=== PATIENT | male | born 1970 | race Caucasian/White ===

== ENCOUNTER 2020-10-21 02:43 | Emergency (ER) | payer OTHER, SELFPAY ==
[2020-10-21] MEDS ORDERED: ONDANSETRON 4 MG/2 ML VIAL ONE (03:10)
[2020-10-21] MEDS ORDERED: NA CHLORIDE 0.9% 1,000 ML ONE (03:10)
[2020-10-21 03:14] LABS: Absolute Lymphocytes (CBC) 0.8 K/uL (0.7-4.9); Basophils % 0.4 % (0-1.3); Hematocrit 44.4 % (39.6-49.0); Lymphocytes % 7.3 % (15.3-44.8); MPV 7.3 fL (7.6-11.3); RBC Red Blood Cell Count 4.63 M/uL (4.33-5.43)
[2020-10-21] MEDS ORDERED: PANTOPRAZOLE 40 MG INJ ONE (03:24)
[2020-10-21 03:34] LABS: Albumin 4.8 g/dL (3.4-5.0); Bilirubin Direct 0.4 mg/dL (0-0.2); Bilirubin Total 2.6 mg/dL (0.2-1.0); Potassium 3.9 mmol/L (3.5-5.1); Protein, Total 9.1 g/dL (6.4-8.2)
--- NOTE | 2020-10-21 04:07 | EDPHYS ---
Physician Documentation [facility] Name: Basim Mathis Age: 49 yrs Sex: Male : 1970 Arrival Date: 10/21/2020 Time: 02:46 Bed 14 Private MD: ED Physician Anoop Sun HPI: 10/21 03:59 This 49 yrs old Male presents to ER via Ambulatory with complaints of tw4 Nausea/Vomiting. 03:59 The patient presents to the emergency department with nausea, vomiting, that is tw4 continuous. Onset: The symptoms/episode began/occurred today. Possible causes: ALCOHOL WITHDRAWAL. The symptoms are aggravated by nothing. The symptoms are alleviated by nothing. Associated signs and symptoms: Pertinent positives: abdominal pain. Severity of symptoms: At their worst the symptoms were moderate in the emergency department the symptoms are unchanged. The patient has not experienced similar symptoms in the past. Historical: - Allergies: 03:22 No Known Allergies; ea - Home Meds: 03:22 None [Active]; ea - PMHx: 03:22 None; ea - PSHx: 03:22 None; ea - Immunization history:: Adult Immunizations up to date. - Social history:: Smoking status: Patient/guardian denies using tobacco, Patient uses alcohol, on a daily basis. ROS: 03:59 Constitutional: Negative for fever, chills, and weight loss, Eyes: Negative for injury, tw4 pain, redness, and discharge, Cardiovascular: Negative for chest pain, palpitations, and edema, Respiratory: Negative for shortness of breath, cough, wheezing, and pleuritic chest pain, Abdomen/GI: Negative for abdominal pain, nausea, vomiting, diarrhea, and constipation, MS/Extremity: Negative for injury and deformity, Skin: Negative for injury, rash, and discoloration. Exam: 04:08 Constitutional: This is a well developed, well nourished patient who is awake, alert, tw4 and in no acute distress. Head/Face: Normocephalic, atraumatic. Chest/axilla: Normal chest wall appearance and motion. Nontender with no deformity. No lesions are appreciated. Cardiovascular: Regular rate and rhythm with a normal S1 and S2. No gallops, murmurs, or rubs. Normal PMI, no JVD. No pulse deficits. Respiratory: Lungs have equal breath sounds bilaterally, clear to auscultation and percussion. No rales, rhonchi or wheezes noted. No increased work of breathing, no retractions or nasal flaring. 04:08 Back: No spinal tenderness. No costovertebral tenderness. Full range of motion. Skin: Warm, dry with normal turgor. Normal color with no rashes, no lesions, and no evidence of cellulitis. MS/ Extremity: Pulses equal, no cyanosis. Neurovascular intact. Full, normal range of motion. Neuro: Awake and alert, GCS 15, oriented to person, place, time, and situation. Cranial nerves II-XII grossly intact. Motor strength 5/5 in all extremities. Sensory grossly intact. Cerebellar exam normal. Normal gait. 04:08 Abdomen/GI: Inspection: abdomen appears normal, Bowel sounds: normal, Palpation: moderate abdominal tenderness, in the epigastric area. Vital Signs: 02:58 BP 151 / 87; Pulse 92; Resp 18; Temp 97.4; Pulse Ox 97% ; Weight 61.23 kg; Height 5 ft. ea 8 in. (172.72 cm); 04:30 BP 136 / 76; Pulse 98; Resp 16; Pulse Ox 99% ; ea 05:06 BP 142 / 84; Pulse 92; Resp 18; Temp 97.6; Pulse Ox 98% on R/A; ea 02:58 Body Mass Index 20.53 (61.23 kg, 172.72 cm) ea MDM: 03:09 Patient medically screened. tw4 04:08 Differential diagnosis: Nonspecific abd pain, gastritis, cholecystitis, pancreatitis, tw4 viral gastroenteritis. Data reviewed: vital signs, nurses notes. Data reviewed: lab test result(s), CBC, electrolytes. Data interpreted: Pulse oximetry: Interpretation: normal. Counseling: I had a detailed discussion with the patient and/or guardian regarding: the historical points, exam findings, and any diagnostic results supporting the discharge/admit diagnosis, lab results. Medication response: Zofran relieved the patient's nausea. Special discussion: I discussed with the patient/guardian in detail that at this point there is no indication for admission to the hospital. It is understood, however, that if the symptoms persist or worsen the patient needs to return immediately for re-evaluation. 10/21 02:51 Order name: Basic Metabolic Panel; Complete Time: 03:57 tw4 12/12 03:58 Interpretation: Normal except: GFR 55; CRE 1.37; GLUC 163; CO2 15. tw4 10/21 02:51 Order name: CBC with Diff; Complete Time: 03:57 tw4 10/21 03:58 Interpretation: Normal except: LYM% 7.3; MAU% 83.1; MPV 7.3; NEUT A 8.6. tw4 10/21 02:51 Order name: Hepatic Function; Complete Time: 03:57 4 10/21 03:58 Interpretation: Normal except: GLOB 4.3; TP 9.1; BILID 0.4; BILIT 2.6; ALK 122; AST 91. tw10/21 02:51 Order name: Lipase; Complete Time: 03:57 4 10/21 02:51 Order name: IV Saline Lock; Complete Time: 03:10 tw4 10/21 02:51 Order name: Labs collected and sent; Complete Time: 03:11 tw4 Administered Medications: 03:09 Drug: NS 0.9% 1000 ml Route: IV; Rate: 1 bolus; Site: right antecubital; ea 04:31 Follow up: Response: No adverse reaction; IV Status: Completed infusion; IV Intake: ea 1000ml 03:09 Drug: Zofran (Ondansetron) 4 mg Route: IVP; Site: right antecubital; ea 04:31 Follow up: Response: No adverse reaction; Nausea is decreased ea 03:16 Drug: ProTONIX 40 mg Route: IVP; Site: right antecubital; ea 04:31 Follow up: Response: No adverse reaction ea Disposition: 10/21/20 04:06 Discharged to Home. Impression: Nausea and vomiting, Alcohol dependence with withdrawal, uncomplicated. - Condition is Stable. - Discharge Instructions: Chemical Dependency, Finding Treatment for Addiction, Alcohol Withdrawal, Alcohol Use Disorder, Alcohol Withdrawal, [id number], What You Need to Know About Alcohol Abuse and Dependence, Youth. - Prescriptions for Zofran 4 mg Oral Tablet - take 1 tablet by ORAL route every 12 hours As needed; 20 tablet. Pepcid 20 mg Oral Tablet - take 1 tablet by ORAL route every 12 hours for 10 days; 20 tablet. - Medication Reconciliation Form, Thank You Letter, Antibiotic Education, Prescription Opioid Use form. - Follow up: Private Physician; When: Upon discharge from the Emergency Department; Reason: Recheck today's complaints, Continuance of care, Re-evaluation by your physician. - Problem is new. - Symptoms have improved. Signatures: Dispatcher [employer] Amanda Hoover, Anoop Graves RN, ea, MD MD tw4 Corrections: (The following items were deleted from the chart) 06:04 04:06 10/21/2020 04:06 Discharged to Home. Impression: Nausea and vomiting; Alcohol ea dependence with withdrawal, uncomplicated. Condition is Stable. Forms are Medication Reconciliation Form, Thank You Letter, Antibiotic Education, Prescription Opioid Use. Follow up: Private Physician; When: Upon discharge from the Emergency Department; Reason: Recheck today's complaints, Continuance of care, Re-evaluation by your physician. Problem is new. Symptoms have improved. tw4
--- NOTE | 2020-10-21 04:07 | ER ---
Nurse's Notes [facility] Name: Basim Mathis Age: 49 yrs Sex: Male : 1970 Arrival Date: 10/21/2020 Time: 02:46 Bed 14 Private MD: Diagnosis: Nausea and vomiting;Alcohol dependence with withdrawal, uncomplicated Presentation: 10/21 02:58 Chief complaint: Patient states: Reports nausea and vomiting since yesterday morning, ea pt reports symptoms started at 7 am Friday. Denies diarrhea. States ,"I normally drink 1 pint of of liquor a day but haven't been able to because I have been vomiting.". Coronavirus screen: At this time, the client does not indicate any symptoms associated with coronavirus-19. Ebola Screen: No symptoms or risks identified at this time. Initial Sepsis Screen: Does the patient meet any 2 criteria? No. Patient's initial sepsis screen is negative. Does the patient have a suspected source of infection? No. Patient's initial sepsis screen is negative. Risk Assessment: Do you want to hurt yourself or someone else? Patient reports no desire to harm self or others. Onset of symptoms was October 20, 2020. 02:58 Method Of Arrival: Ambulatory ea 02:58 Acuity: HUYEN 3 ea Historical: - Allergies: 03:22 No Known Allergies; ea - Home Meds: 03:22 None [Active]; ea - PMHx: 03:22 None; ea - PSHx: 03:22 None; ea - Immunization history:: Adult Immunizations up to date. - Social history:: Smoking status: Patient/guardian denies using tobacco, Patient uses alcohol, on a daily basis. Screenin:20 Abuse screen: Denies threats or abuse. Nutritional screening: No deficits noted. ea Tuberculosis screening: No symptoms or risk factors identified. Fall Risk IV access (20 points). Assessment: 03:22 General: Appears in no apparent distress. Behavior is appropriate for age. Pain: Denies ea pain. Neuro: Level of Consciousness is awake, alert, obeys commands, Oriented to person, place, time, situation. Cardiovascular: Patient's skin is warm and dry. Respiratory: Airway is patent Respiratory effort is even, unlabored, Respiratory pattern is regular, symmetrical. GI: Abdomen is non-distended, Reports nausea, vomiting. Derm: Skin is dry, Skin is pale, Skin temperature is warm. 04:43 Reassessment: Patient and/or family updated on plan of care and expected duration. Pain ea level reassessed. Patient is alert, oriented x 3, equal unlabored respirations, skin warm/dry/pink. Discharge instruction given to patient, verbalized the understanding of instruction. Pt reports he has not eaten all day, pt given fruit cup and juice. Tolerating well. 06:03 Reassessment: Patient and/or family updated on plan of care and expected duration. Pain ea level reassessed. Patient is alert, oriented x 3, equal unlabored respirations, skin warm/dry/pink. Pt reports his nausea is gone, was able to tolerate PO fluids and a fruit cup. Pt left ED ambulatory tolerating well. Vital Signs: 02:58 BP 151 / 87; Pulse 92; Resp 18; Temp 97.4; Pulse Ox 97% ; Weight 61.23 kg; Height 5 ft. ea 8 in. (172.72 cm); 04:30 BP 136 / 76; Pulse 98; Resp 16; Pulse Ox 99% ; ea 05:06 BP 142 / 84; Pulse 92; Resp 18; Temp 97.6; Pulse Ox 98% on R/A; ea 02:58 Body Mass Index 20.53 (61.23 kg, 172.72 cm) ea ED Course: 02:46 Patient arrived in ED. am2 02:51 Anoop Sun MD is Attending Physician. tw4 02:52 Amanda Webster, LEEANNA is Primary Nurse. ea 03:00 Inserted saline lock: 20 gauge in right antecubital area, using aseptic technique. ea Blood collected. 03:20 Triage completed. ea 03:21 Patient has correct armband on for positive identification. Bed in low position. Call ea light in reach. Side rails up X 1. 03:21 Arm band placed on right wrist. Patient placed in an exam room, on a stretcher, on ea bus monitor, on pulse oximetry. 04:31 No provider procedures requiring assistance completed. ea 04:43 IV discontinued, intact, bleeding controlled, No redness/swelling at site. Pressure ea dressing applied. Administered Medications: 03:09 Drug: NS 0.9% 1000 ml Route: IV; Rate: 1 bolus; Site: right antecubital; ea 04:31 Follow up: Response: No adverse reaction; IV Status: Completed infusion; IV Intake: ea 1000ml 03:09 Drug: Zofran (Ondansetron) 4 mg Route: IVP; Site: right antecubital; ea 04:31 Follow up: Response: No adverse reaction; Nausea is decreased ea 03:16 Drug: ProTONIX 40 mg Route: IVP; Site: right antecubital; ea 04:31 Follow up: Response: No adverse reaction ea Intake: 04:31 IV: 1000ml; Total: 1000ml. ea Outcome: 04:06 Discharge ordered by tw4 04:43 Discharge instructions given to patient, Instructed on discharge instructions, follow ea up and referral plans. medication usage, Demonstrated understanding of instructions, follow-up care, medications, Prescriptions given X 2. 06:03 Discharged to home ambulatory. ea 06:03 Condition: stable 06:04 Patient left the ED. ea Signatures: Dinorah Maria Elena, RN RN Anoop Kern MD MD tw4
[2020-10-25 13:07] VITALS: BP 151/87; TEMP 97.4; O2SAT 97
== END 2020-10-21 06:04 | disposition home or self-care (01) ==
LOC: ER 02:43
DX: F10.239 Alcohol dependence with withdrawal, unspecified (principal)
CPT/HCPCS: 36415; 80048; 80076; 83690; 85025; 96361; 96374; 96375; 99284; C9113; J2405; J7030

== ENCOUNTER 2021-02-09 18:07 | Emergency (ER) | payer SELFPAY ==
[2021-02-09] MEDS ORDERED: LORazepam 2 MG/ML VIAL ONE (19:44)
[2021-02-09] MEDS ORDERED: ONDANSETRON 4 MG/2 ML VIAL ONE (19:44)
[2021-02-09] MEDS ORDERED: NA CHLORIDE 0.9% 1,000 ML ONE ×2 (19:44→20:32)
[2021-02-09] MEDS ORDERED: PANTOPRAZOLE 40 MG INJ ONE (19:44)
[2021-02-09 19:48] LABS: Absolute Lymphocytes (CBC) 0.7 K/uL (0.7-4.9); Basophils % 0.5 % (0-1.3); Lymphocytes % 4.1 % (15.3-44.8); MPV 7.9 fL (7.6-11.3); Protime INR 0.89
[2021-02-09 20:00] LABS: ALT/SGPT 103 U/L (12-78); AST/SGOT 85 U/L (15-37); Alkaline Phosphatase 108 U/L (45-117); BUN Blood Urea Nitrogen 14 mg/dL (7-18); Bicarbonate 15 mmol/L (21-32); Bilirubin Direct 0.3 mg/dL (0-0.2); Bilirubin Total 1.8 mg/dL (0.2-1.0); Glucose Level 131 mg/dL (74-106); Lipase 72 U/L (73-393); Potassium 4.6 mmol/L (3.5-5.1); Protein, Total 9.3 g/dL (6.4-8.2); Sodium Level 140 mmol/L (136-145); Troponin I < 0.02 ng/mL (0.0-0.045)
[2021-02-09 20:29] LABS: Blood Morphology Comment NOT SEEN (NOT SEEN); Platelet Estimate ADEQ
[2021-02-09] MEDS ORDERED: MULTIVITAMINS 10 ML VIAL (INJ) IV ONE (20:31)
[2021-02-09] MEDS ORDERED: THIAMINE 200 MG/2 ML INJ ONE (20:31)
[2021-02-09] MEDS ORDERED: FOLIC ACID 5 MG/ML VIAL ONE (20:32)
--- NOTE | 2021-02-09 21:06 | RAD REPORT ---
EXAM DESCRIPTION: CT - Abdomen Pelvis W Contrast - 02/09/2021 8:54 pm CLINICAL HISTORY: Abdominal pain COMPARISON: none. TECHNIQUE: Computed axial tomography of the abdomen pelvis was obtained. 100 cc Isovue-300 was admin istered intravenously. Oral contrast was not requested which limits evaluation of bowel. All CT scans are performed using dose optimization technique as appropriate and may include automated exposure control or mA/KV adjustment according to patient size. FINDINGS: Fatty liver. Hepatomegaly. Spleen, pancreas, adrenal and kidneys appear unremarkable. There is no evidence of diverticulitis. Normal appendix IMPRESSION: Fatty liver. Mild hepatomegaly.
--- NOTE | 2021-02-09 21:07 | RAD REPORT ---
EXAM DESCRIPTION: US - Abdomen Exam Limited - 02/09/2021 9:00 pm CLINICAL HISTORY: Abdominal pain. COMPARISON: None. FINDINGS: The gallbladder wall is not thickened. A gallstone is not seen. The biliary tree is normal caliber. IMPRESSION: Unremarkable gallbladder ultrasound.
--- NOTE | 2021-02-09 21:20 | EDPHYS ---
Physician Documentation [facility] Name: Basim Mathis Age: 50 yrs Sex: Male : 1970 Arrival Date: 02/09/2021 Time: 18:08 Bed 24 Private MD: ED Physician Wilbert Logan HPI: 02/09 19:00 This 50 yrs old Male presents to ER via Ambulatory with complaints of cp Vomiting. 19:00 The patient presents to the emergency department with nausea, with "dry heaves", cp vomiting, that is continuous, described as bilious, abdominal pain, of the right upper quadrant and left upper quadrant. Onset: The symptoms/episode began/occurred this morning. Possible causes: history of daily alcohol use. Associated signs and symptoms: Pertinent negatives: constipation, diarrhea, fever, GI bleeding. Severity of symptoms: in the emergency department the symptoms are unchanged despite home interventions. Historical: - Allergies: 18:36 No Known Allergies; ca1 - Home Meds: 18:36 None [Active]; ca1 - PMHx: 18:36 None; ca1 - PSHx: 18:36 None; ca1 - Immunization history:: Flu vaccine is not up to date. - Social history:: Smoking status: Patient denies any tobacco usage or history of. ROS: 19:05 Constitutional: Positive for poor PO intake, Negative for body aches, chills, fever. cp 19:05 Eyes: Negative for injury, pain, redness, and discharge. cp 19:05 Cardiovascular: Negative for chest pain. 19:05 Respiratory: Negative for cough, shortness of breath, wheezing. 19:05 Abdomen/GI: Positive for abdominal pain, nausea and vomiting, Negative for diarrhea, constipation, hematemesis, black/tarry stool, rectal bleeding. 19:05 Back: Negative for pain at rest, pain with movement. 19:05 Skin: Negative for rash. 19:05 Neuro: Negative for altered mental status, headache, syncope, weakness. 19:05 All other systems are negative. Exam: 19:12 Constitutional: The patient appears alert, awake, non-diaphoretic, non-toxic, well cp developed, well nourished. 19:12 Head/Face: Normocephalic, atraumatic. cp 19:12 Eyes: Periorbital structures: appear normal, Pupils: equal, round, and reactive to light and accomodation, Extraocular movements: intact throughout, Conjunctiva: normal, no exudate, no injection, Sclera: no appreciated abnormality, Lids and lashes: appear normal, bilaterally. 19:12 ENT: External ear(s): are unremarkable, Nose: is normal, Mouth: Lips: moist, Oral mucosa: moist, Posterior pharynx: Airway: no evidence of obstruction, patent. 19:12 Chest/axilla: Inspection: normal, Palpation: is normal, no crepitus, no tenderness. 19:12 Cardiovascular: Rate: tachycardic, Rhythm: regular, Edema: is not appreciated, JVD: is not appreciated. 19:12 Respiratory: the patient does not display signs of respiratory distress, Respirations: normal, no use of accessory muscles, no retractions, labored breathing, is not present, Breath sounds: are clear throughout, no decreased breath sounds, no stridor, no wheezing. 19:12 Abdomen/GI: Inspection: abdomen appears normal, Bowel sounds: active, all quadrants, Palpation: soft, in all quadrants, moderate abdominal tenderness, in the right upper quadrant and left upper quadrant, rebound tenderness, is not appreciated, involuntary guarding, is not appreciated. 19:12 Back: pain, is absent, ROM is normal. 19:12 Skin: no rash present. 19:12 Neuro: Orientation: to person, place \\T\\ time. Mentation: is normal, Motor: moves all fours, strength is normal. 21:15 ECG was reviewed by the Attending Physician. cp Vital Signs: 18:34 BP 155 / 93; Pulse 125; Resp 18 S; Temp 97.5(TE); Pulse Ox 100% on R/A; Weight 62.14 kg ca1 (R); Height 5 ft. 8 in. (172.72 cm) (R); 19:32 BP 153 / 88; Pulse 83; Resp 16; Pulse Ox 98% ; sf 20:00 BP 132 / 66; Pulse 87; Resp 16; Pulse Ox 98% ; sf 20:30 BP 136 / 83; Pulse 111; Resp 16; Pulse Ox 98% ; sf 21:00 BP 125 / 71; Pulse 100; Resp 16; Pulse Ox 100% ; sf 21:31 BP 142 / 84; Pulse 104; Resp 16; Pulse Ox 100% ; sf 22:09 BP 143 / 86; Pulse 109; Resp 16; Pulse Ox 99% ; sf 22:30 BP 133 / 78; Pulse 100; Resp 16; Pulse Ox 100% ; sf 23:00 BP 143 / 78; Pulse 100; Resp 16; Pulse Ox 100% ; sf 23:30 BP 142 / 78; Pulse 100; Resp 16; Pulse Ox 98% ; sf 18:34 Body Mass Index 20.83 (62.14 kg, 172.72 cm) ca1 MDM: 18:52 Patient medically screened. 21:15 Data reviewed: vital signs, nurses notes, lab test result(s), EKG, radiologic studies, cp CT scan, ultrasound. 21:15 Test interpretation: by ED physician or midlevel provider: ECG. 02/09 18:54 Order name: Basic Metabolic Panel; Complete Time: 20:20 02/09 20:21 Interpretation: Normal except: CO2 15; GLUC 131; GFR 71. 02/09 18:54 Order name: CBC with Diff; Complete Time: 21:00 cp 02/09 20:21 Interpretation: Normal except: WBC 17.00; MAU% 89.3; LYM% 4.1; NEUT A 15.2. 02/09 18:54 Order name: Hepatic Function; Complete Time: 20:20 cp 02/09 20:24 Interpretation: Normal except: AST 85; ALT 103; BILIT 1.8; BILID 0.3; TP 9.3; GLOB 4.3. cp 02/09 18:54 Order name: Lipase; Complete Time: 20:20 02/09 20:24 Interpretation: Abnormal: LIP 72. cp 02/09 18:54 Order name: PT-INR; Complete Time: 20:20 cp 02/09 18:54 Order name: UDS; Complete Time: 22:15 cp 02/09 18:54 Order name: ETOH Level; Complete Time: 20:20 cp 02/09 18:54 Order name: Troponin I; Complete Time: 20:20 cp 02/09 19:53 Order name: Manual Differential; Complete Time: 21:00 EDMS 02/09 21:00 Interpretation: Normal except: SEGS 82; BANDS [F] 8; LYM 1. cp 02/09 21:15 Order name: ABG; Complete Time: 23:05 cp 02/09 21:35 Order name: COVID-19 : Document "Date of Symptom Onset" if Symptomatic. 02/09 22:15 Order name: BMP; Complete Time: 23:05 la1 02/09 22:49 Order name: SARS-COV-2 RT PCR; Complete Time: 23:30 EDMS 02/09 18:54 Order name: IV Saline Lock; Complete Time: 19:22 cp 02/09 18:54 Order name: Labs collected and sent; Complete Time: 19:22 cp 02/09 18:54 Order name: EKG; Complete Time: 18:55 cp 02/09 18:54 Order name: EKG - Nurse/Tech; Complete Time: 21:09 cp 02/09 19:49 Order name: CT Abd/Pelvis - IV Contrast Only; Complete Time: 21:12 cp 02/09 21:13 Interpretation: Report reviewed. 02/09 20:30 Order name: US Abdomen Limited: RUQ/epigastric area; Complete Time: 21:12 cp EC:15 Rate is 101 beats/min. Rhythm is regular. ND interval is normal. QRS interval is cp normal. QT interval is normal. Interpreted by me. Reviewed by me. Administered Medications: 19:30 Drug: NS 0.9% 1000 ml Route: IV; Rate: 1 bolus; Site: right antecubital; rr5 21:35 Follow up: Response: No adverse reaction; IV Status: Completed infusion; IV Intake: sf 1000ml 19:32 Drug: Zofran (Ondansetron) 4 mg Route: IVP; Site: right antecubital; rr5 20:20 Follow up: Response: No adverse reaction; Nausea is decreased sf 19:34 Drug: ProTONIX 40 mg Route: IVP; Site: right antecubital; rr5 20:20 Follow up: Response: No adverse reaction; Nausea is decreased sf 19:36 Drug: Ativan 1 mg Route: IVP; Site: right antecubital; rr5 20:21 Follow up: Response: No adverse reaction; Anxiety decreased sf 20:20 Drug: Banana Bag - (NS 0.9% 1000 ml, foLIC Acid 1 mg, Thiamine 100 mg, Multivitamin 1 sf amp) Route: IV; Rate: 500 ml/hr; Site: right antecubital; 21:35 Follow up: Response: No adverse reaction; IV Status: Completed infusion; IV Intake: sf 1000ml Disposition: 02/10 08:53 Co-signature as Attending Physician, Wilbert Logan MD I agree with the assessment and fabi plan of care. Disposition: 02/09/21 23:29 Discharged to Home. Impression: Alcohol abuse with other alcohol-induced disorder. - Condition is Stable. - Discharge Instructions: Alcohol Use Disorder, Alcohol Abuse and Nutrition, What You Need to Know About Alcohol Abuse and Dependence, Youth. - Medication Reconciliation Form, Thank You Letter, Antibiotic Education, Prescription Opioid Use form. - Follow up: Private Physician; When: 1 - 2 days; Reason: Recheck today's complaints. - Problem is new. - Symptoms have improved. Signatures: Dispatcher [employer] EDOH Wilbert Logan MD MD cha Roszak, Josh, PA PA jr8 Artur Berrios, EVENT REPRESENTATIVE-C EVENT REPRESENTATIVE-Cla1 Wilbert Lynn PA PA cp Roque, Raymond RN RN rr5 Susie Anne RN RN ca1 Paul Kent RN RN sf Corrections: (The following items were deleted from the chart) 02/09 21:57 21:36 CORONAVIRUS ordered. EDOH EDOH 22:15 21:19 Hospitalization Ordered by Russ Stratton DO for Inpatient Admission. Preliminary cp diagnosis is Alcohol dependence with withdrawal. Bed requested for Telemetry/MedSurg (Inpatient). Status is Inpatient Admission. Condition is Stable. Problem is new. Symptoms have improved. cp 23:38 23:29 02/09/2021 23:29 Discharged to Home. Impression: Alcohol abuse with other sf alcohol-induced disorder. Condition is Stable. Discharge Instructions: Alcohol Use Disorder, Alcohol Abuse and Nutrition, What You Need to Know About Alcohol Abuse and Dependence, Youth. Forms are Medication Reconciliation Form, Thank You Letter, Antibiotic Education, Prescription Opioid Use. Follow up: Private Physician; When: 1 - 2 days; Reason: Recheck today's complaints. Problem is new. Symptoms have improved. [id number]
--- NOTE | 2021-02-09 21:20 | ER ---
Nurse's Notes [facility] Name: Basim Mathis Age: 50 yrs Sex: Male : 1970 Arrival Date: 02/09/2021 Time: 18:08 Bed 24 Private MD: Diagnosis: Alcohol abuse with other alcohol-induced disorder Presentation: 02/09 18:34 Chief complaint: Patient states: vomiting since this morning, couldn't stop throwing ca1 up. Was drinking Vodka last night. Coronavirus screen: Client denies travel out of the [place] in the last 14 days. vomiting. Client presents with at least one sign or symptom that may indicate coronavirus-19. Standard/surgical mask placed on the client. Provider contacted for isolation considerations. Ebola Screen: Patient negative for fever greater than or equal to 101.5 degrees Fahrenheit, and additional compatible Ebola Virus Disease symptoms Patient denies exposure to infectious person. Patient denies travel to an Ebola-affected area in the 21 days before illness onset. No symptoms or risks identified at this time. Initial Sepsis Screen: Does the patient meet any 2 criteria? No. Patient's initial sepsis screen is negative. Does the patient have a suspected source of infection? No. Patient's initial sepsis screen is negative. Risk Assessment: Do you want to hurt yourself or someone else? Patient reports no desire to harm self or others. Onset of symptoms was February 09, 2021. 18:34 Method Of Arrival: Ambulatory ca1 18:34 Acuity: HUYEN 3 ca1 Historical: - Allergies: 18:36 No Known Allergies; ca1 - Home Meds: 18:36 None [Active]; ca1 - PMHx: 18:36 None; ca1 - PSHx: 18:36 None; ca1 - Immunization history:: Flu vaccine is not up to date. - Social history:: Smoking status: Patient denies any tobacco usage or history of. Screenin:26 Abuse screen: Denies threats or abuse. Denies injuries from another. Nutritional sf screening: No deficits noted. Tuberculosis screening: No symptoms or risk factors identified. Never had TB. Possible symptoms: None Risk factors: None. Fall Risk None identified. No fall in past 12 months (0 pts). No secondary diagnosis (0 pts). IV access (20 points). Ambulatory Aid- None/Bed Rest/Nurse Assist (0 pts). Gait- Normal/Bed Rest/Wheelchair (0 pts) Mental Status- Oriented to own ability (0 pts). Total Sousa Fall Scale indicates No Risk (0-24 pts). Assessment: 20:00 General: Appears in no apparent distress. comfortable, Behavior is calm, cooperative. sf Pain: Denies pain. Neuro: No deficits noted. Level of Consciousness is awake, alert, Oriented to person, place, time, situation. Cardiovascular: Patient's skin is warm and dry. Respiratory: No deficits noted. Airway is patent Respiratory effort is even, unlabored, Respiratory pattern is regular, symmetrical. GI: Abdomen is non-distended, Reports nausea, vomiting. : No signs and/or symptoms were reported regarding the genitourinary system. Derm: No signs and/or symptoms reported regarding the dermatologic system. Musculoskeletal: No signs and/or symptoms reported regarding the musculoskeletal system. 21:00 Reassessment: Patient appears in no apparent distress at this time. Patient and/or sf family updated on plan of care and expected duration. Pain level reassessed. Patient is alert, oriented x 3, equal unlabored respirations, skin warm/dry/pink. Patient states feeling better. Patient states symptoms have improved. 22:45 Reassessment: Patient appears in no apparent distress at this time. No changes from sf previously documented assessment. Patient and/or family updated on plan of care and expected duration. Pain level reassessed. Patient is alert, oriented x 3, equal unlabored respirations, skin warm/dry/pink. Given sandwich and water per request, denies nausea or pain at this time Patient denies pain at this time. 23:34 Reassessment: Patient appears in no apparent distress at this time. No changes from sf previously documented assessment. Patient and/or family updated on plan of care and expected duration. Pain level reassessed. Patient is alert, oriented x 3, equal unlabored respirations, skin warm/dry/pink. Patient able to eat sandwich and bottle of water without nausea/vomiting or difficulty Patient denies pain at this time. Vital Signs: 18:34 BP 155 / 93; Pulse 125; Resp 18 S; Temp 97.5(TE); Pulse Ox 100% on R/A; Weight 62.14 kg ca1 (R); Height 5 ft. 8 in. (172.72 cm) (R); 19:32 BP 153 / 88; Pulse 83; Resp 16; Pulse Ox 98% ; sf 20:00 BP 132 / 66; Pulse 87; Resp 16; Pulse Ox 98% ; sf 20:30 BP 136 / 83; Pulse 111; Resp 16; Pulse Ox 98% ; sf 21:00 BP 125 / 71; Pulse 100; Resp 16; Pulse Ox 100% ; sf 21:31 BP 142 / 84; Pulse 104; Resp 16; Pulse Ox 100% ; sf 22:09 BP 143 / 86; Pulse 109; Resp 16; Pulse Ox 99% ; sf 22:30 BP 133 / 78; Pulse 100; Resp 16; Pulse Ox 100% ; sf 23:00 BP 143 / 78; Pulse 100; Resp 16; Pulse Ox 100% ; sf 23:30 BP 142 / 78; Pulse 100; Resp 16; Pulse Ox 98% ; sf 18:34 Body Mass Index 20.83 (62.14 kg, 172.72 cm) ca1 ED Course: 18:08 Patient arrived in ED. as 18:36 Triage completed. ca1 18:36 Arm band placed on right wrist. ca1 18:48 Wilbert Lynn PA is PHCP. cp 18:48 Romero Millan MD is Attending Physician. cp 19:04 Paul Kent, LEEANNA is Primary Nurse. sf 19:18 Wilbert Logan MD is Attending Physician. cp 19:19 Inserted saline lock: 20 gauge in right antecubital area, using aseptic technique. rr5 Blood collected. 19:19 Initial lab(s) drawn, by ED staff, sent to lab. sf 20:00 Patient has correct armband on for positive identification. Placed in gown. Bed in low sf position. Call light in reach. Side rails up X2. Pulse ox on. NIBP on. Door closed. Noise minimized. Visitors limited. Lights dimmed. Warm blanket given. Verbal reassurance given. 20:34 US Abdomen Limited: RUQ/epigastric area Sent. sf 20:42 Ultrasound complete. sf 20:45 CT Abd/Pelvis - IV Contrast Only Sent. sf 20:54 CT Abd/Pelvis - IV Contrast Only In Process Unspecified. EDMS 21:00 US Abdomen Limited: RUQ/epigastric area In Process Unspecified. EDMS 21:06 EKG done, by ED staff, reviewed by Wilbert VAZQUEZ. sf 21:19 Russ Stratton DO is Hospitalizing Provider. cp 21:20 Urine collected: clean catch specimen, clear, Amount Voided: 350mL. sf 21:35 No provider procedures requiring assistance completed. COVID swab sent to lab. sf 21:36 COVID-19 : Document "Date of Symptom Onset" if Symptomatic. Sent. sf 21:45 ABG drawn. by RT staff, on room air. sf 22:40 Repeat lab(s) drawn. by me, sent to lab. sf 23:38 IV discontinued, intact, bleeding controlled, No redness/swelling at site. Pressure sf dressing applied. Administered Medications: 19:30 Drug: NS 0.9% 1000 ml Route: IV; Rate: 1 bolus; Site: right antecubital; rr5 21:35 Follow up: Response: No adverse reaction; IV Status: Completed infusion; IV Intake: sf 1000ml 19:32 Drug: Zofran (Ondansetron) 4 mg Route: IVP; Site: right antecubital; rr5 20:20 Follow up: Response: No adverse reaction; Nausea is decreased sf 19:34 Drug: ProTONIX 40 mg Route: IVP; Site: right antecubital; rr5 20:20 Follow up: Response: No adverse reaction; Nausea is decreased sf 19:36 Drug: Ativan 1 mg Route: IVP; Site: right antecubital; rr5 20:21 Follow up: Response: No adverse reaction; Anxiety decreased sf 20:20 Drug: Banana Bag - (NS 0.9% 1000 ml, foLIC Acid 1 mg, Thiamine 100 mg, Multivitamin 1 sf amp) Route: IV; Rate: 500 ml/hr; Site: right antecubital; 21:35 Follow up: Response: No adverse reaction; IV Status: Completed infusion; IV Intake: sf 1000ml Intake: 21:35 IV: 1000ml; Total: 1000ml. sf 21:35 IV: 1000ml; Total: 2000ml. sf Outcome: 21:19 Decision to Hospitalize by Provider. cp 23:29 Discharge ordered by . maggie 23:38 Discharged to home ambulatory. sf 23:38 Condition: stable 23:38 Discharge instructions given to patient, Instructed on discharge instructions, follow up and referral plans. Demonstrated understanding of instructions, follow-up care. 23:38 Patient left the ED. sf Signatures: Dispatcher [employer] Monica Carreon Josh, PA PA [id number] Wilbert Lynn PA PA cp Roque, Raymond, LEEANNA RN rr5 Susie Anne RN RN ca1 Paul Kent RN RN sf
[2021-02-09 21:55] LABS: Arterial Blood Carboxyhemoglob 1.5 % (0-1.5); Blood Gas Oxyhemoglobin 95.5 % (94-97)
[2021-02-09 21:56] LABS: Barbiturates NEGATIVE (NEGATIVE); Benzodiazepines NEGATIVE (NEGATIVE); Cocaine NEGATIVE (NEGATIVE); METHAMPHETAM NEGATIVE (NEGATIVE); Methadone NEGATIVE (NEGATIVE); Opiates NEGATIVE (NEGATIVE); Phencyclidine NEGATIVE (NEGATIVE); THC Cannibis POSITIVE (NEGATIVE)
[2021-02-09 23:02] LABS: BUN Blood Urea Nitrogen 12 mg/dL (7-18); Bicarbonate 19 mmol/L (21-32); Glucose Level 90 mg/dL (74-106); Potassium 4.9 mmol/L (3.5-5.1); Sodium Level 140 mmol/L (136-145)
[2021-02-10 13:01] VITALS: TEMP 97.5
[2021-02-10 13:13] VITALS: BP 142/78; O2SAT 98
[2021-02-14 14:27] LABS: Urine Blood Trace-intact (Negative); Urine Glucose Negative (Negative); Urine Protein 1+ (Negative); Urine Specific Gravity >=1.030 (1.005-1.030); Urine pH 5.5 (5.0-7.0)
== END 2021-02-09 23:38 | disposition home or self-care (01) ==
LOC: ER 18:07
DX: F10.188 Alcohol abuse with other alcohol-induced disorder (principal); Z20.822 Contact with and (suspected) exposure to COVID-19
CPT/HCPCS: 36415; 74177; 76705; 80048; 80076; 80307; 80320; 81003; 82805; 83690; 84484; 85025; 85610; 93005; 96361; 96365; 96375; 99284; C9113; J2405; J3411; J7030; Q9967; U0003